=== PATIENT | female | born 1975 | race Caucasian/White ===

== ENCOUNTER 2017-09-17 17:22 | Emergency (ER) | payer MEDICAID ==
[~2017-09-17] VITALS: Ht 172.7 cm; Wt 108.9 kg
[~2017-09-17 17:22] MED LIST: ALLEGRA ALLERG180 MG OR; ASPIRIN 325MG325 MG PO; EFFEXOR XR 75MG75 MG PO; EFFEXOR XR150 MG PO; EFFEXOR100 MG PO; FLEXERIL10 MG PO; IRON65 MG PO; LORTAB 5/500 501 TAB PO; METFORMIN500 MG PO; METOPROLOL25 MG PO; SINGULAIR10 MG PO; TORADOL10 M1 PO; VITAMIN B122500 MC1 PO; VITAMIN D5000 I2 PO; ZANTAC 300300 M1 PO; ZOFRAN ODT4 MG PO
[2017-09-17] MEDS ORDERED: MAG-OX 400MG T400 MG PO (17:30)
--- OUTSIDE RECORDS SUMMARY | 2017-09-17 17:37 | External Medical Summary Rpt ---
Author Author CORRIE Gregory, CORRIE Gregory Organization [employer] Address Unknown Phone Unavailable
--- OUTSIDE RECORDS SUMMARY | 2017-09-17 17:37 | External Medical Summary Rpt | CCD ---
Demographics Preferred Language Mozambican Marital Status Unknown Sabianism Affiliation Unknown Race Unknown Ethnic Group Unknown Author Author , CORRIE DENTON Address Unknown Phone Immunization Unable to retrieve immunization data due to connection failure with Immunization Registry. Please try again later.
--- OUTSIDE RECORDS SUMMARY | 2017-09-17 17:37 | External Medical Summary Rpt | CCD ---
Author Author [employer] Organization [employer] Address Unknown Phone Unavailable Purpose Continuity of Care Document - through 2016
--- OUTSIDE RECORDS SUMMARY | 2017-09-17 17:37 | External Medical Summary Rpt | CCD ---
Author Author , ERNESTO DENTON Address Unknown Phone [email or web address] Purpose Continuity of Care Document - 12-29-2016 through 2016 Problems Code Diagnosis DOS Provider Status M25.551 PAIN IN 06-21-2017 RIGHT HIP M25.511 PAIN IN 06-17-2017 RIGHT SHOULDER M25.559 PAIN IN 05-21-2017 UNSPECIFIED HIP R11.2 NAUSEA WITH 01-15-2017 VOMITING, UNSPECIFIED R11.0 NAUSEA 12-29-2016
--- OUTSIDE RECORDS SUMMARY | 2017-09-17 17:37 | External Medical Summary Rpt | CCD ---
Author Author , ERNESTO DENTON Address Unknown Phone [email or web address] Purpose Continuity of Care Document - 12-29-2016 through 2016 Problems Code Diagnosis DOS Provider Status M25.551 PAIN IN 06-21-2017 RIGHT HIP M25.511 PAIN IN 06-17-2017 RIGHT SHOULDER M25.559 PAIN IN 05-21-2017 UNSPECIFIED HIP R11.2 NAUSEA WITH 01-15-2017 VOMITING, UNSPECIFIED R11.0 NAUSEA 12-29-2016
--- OUTSIDE RECORDS SUMMARY | 2017-09-17 17:37 | External Medical Summary Rpt | CCD ---
Demographics Preferred Language Canadian Marital Status Unknown Holiness Affiliation Unknown Race Unknown Ethnic Group Unknown Author Author , CORRIE DENTON Address Unknown Phone Immunization Unable to retrieve immunization data due to connection failure with Immunization Registry. Please try again later.
--- NOTE | 2017-09-17 18:16 | Emergency Room Report ---
History of Present Illness Time Seen by [id number] Presenting Problem in Triage Pt arrived:Walked Presenting Problem:PT REPORTS PAIN IN COCCYX AREA R/T FALL. Onset of symptoms date/time:09/17/17 or onset unknown for: Treatment Prior to Arrival: [employer] Provided by: Sepsis Risk Assessment: Temp: 98.2 B/P: 156/96 MAP: 116 Pulse: 80 Resp: 18 Recent fever? N Clinical Suspician of Infection? N Mental Status: 1 - Regular (Normal Baseline) Sepsis Risk:Low Sepsis Risk Have you (or family members/close friends) recently traveled outside the [place]? N If Yes, where/when: Have you had exposure to infectious disease within the past month? TB? Other? Specify: Pt fell in bathroom just [employer] while cleaning, landed on L great toe, hyperextending it, now pain with movement and some numbness; worse w WB; also pain in coccyx. Tolerates NSAID's. ALLERGIES Coded Allergies: No Known Allergies (11/20/16) Home Medications Reported Medications VENLAFAXINE HCL (Effexor XR 150MG) 150 MG PO QAM Venlafaxine Hydrochloride (Effexor XR 75MG) 75 MG PO AT 2 P.M. RANITIDINE HCL (Zantac) 300 MG PO BID FEXOFENADINE HCL (Yohana Allergy) 180 MG OR DAILY Montelukast Sodium (Singulair) 10 MG PO DAILY Cyanocobalamin (Vitamin B-12) (Vitamin B12) 2,500 MCG PO DAILY CHOLECALCIFEROL (VITAMIN D3) (Vitamin D3) 5,000 UNIT PO DAILY History Medical History General CAD? No Angina: No [place]: No Hypertension? No Hyperlipidemia? No CHF? No DVT? No PE? No COPD? No Asthma? No Anemia? No GERD? No Gastric ulcers? No GI Bleed? No Hernia? No Thyroid Problems? No Hypothyroidism? No CVA? No Seizures? No Diabetes? No Renal Insuffiency? No End Stage Renal Disease? No UTI? No Stones? No BPH? No GB Disease: No Nephritic Syndrome? No Asplenia? No Hepatitis? No Sickle Cell Disease? No Arthritis? No Migraines? No Cataracts? No Glaucoma? No MRSA? No HIV? No TB? No Anxiety? No Depression? No Cancer? No More? 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 No: respiratory distress, tender on palpation, use of accessory muscles, pain on inspiration, pain on expiration, productive cough, non productive cough. Lung Sounds bilateral: normal breath sounds, lungs clear. Cardiovascular normal exam, regular rate/rhythm, no peripheral edema, no gallop, no JVD, no murmur, no rub, normal peripheral pulses Gastrointestinal normal bowel sounds, normal exam, non tender, soft, no organomegaly, no pulsatile mass, no guarding, no rebound Back normal inspection, no vertebral tenderness, bowel/bladder continent, strt leg raising(L)-NML, strt leg raising(R)-NML, vertebral tenderness (pain over tip of coccyx) Extremities normal range of motion, normal inspection, pain to right great toe proximally and dorsally w/o ecchymosis, deformity, or stepoffs noted. Strength 5 Upper Ext (L), 5 Upper Ext (R), 5 Lower Ext (L), 5 Lower Ext (R) Neurologic alert, normal exam, no motor/sensory deficits, oriented x 3 Glascow Coma Scale Glascow Coma Scale Response Value EYE response: 4 Spontaneously 4 MOTOR response: 6 OBEYS 6 VERBAL response: 5 Oriented & Converses 5 Total 15 Skin intact, normal color, warm/dry Medical Decision Making LABS/Meds/Orders Pt receiving controlled substance in ED? No Dillon was queried for this patient? No Results/Orders Current Medication Orders Sig/Ignacia Start time Last Medication Dose Route Stop Time Status Admin Ketorolac 60 MG ONCE ONE 09/17 1830 AC Tromethamine IM 09/17 1831 Orders Procedure Date/time Status FOOT-LT-3 VIEWS 09/17 173 Active SACRUM AND COCCYX 09/17 1731 Active XRAY/CT/US XRAY/CT/US XRAY toe(s), coccyx XR interpretation by reviewed by me Xray Results abnormal, toe neg acute; small avulsion distal coccyx Departure Departure Time of Disposition 1818 Disposition DC Home or Self Care(routine) Clinical Impression Primary Impression: Fractured coccyx Qualifiers: Encounter type: initial encounter Fracture type: closed Qualified Code: S32.2XXA - Fracture of coccyx, initial encounter for closed fracture Condition STABLE Referrals ALEA HODGE APRN (Family) Patient Instructions DI for Coccyx Fracture Additional Instructions Naproxen every twelve hours with food for 72 hours then every twelve hours as needed; keep stools soft: take Metamucil nightly; see Alea in two to three days for recheck; walk on heel until cleared by Alea Hodge. Discharge Counseling Counseled pt/family regarding diagnosis, test results, medications/RX, home care, follow up needs Prescriptions Current Visit Scripts NAPROXEN (NAPROXEN 500MG TAB) 500 MG PO BIDP PRN pain #20 TAB ED Critical Care Critical Care No at 1820
--- NOTE | 2017-09-17 18:16 | Emergency Room Report ---
History of Present Illness Time Seen by [id number] Presenting Problem in Triage Pt arrived:Walked Presenting Problem:PT REPORTS PAIN IN COCCYX AREA R/T FALL. 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 N Clinical Suspician of Infection? N Mental Status: 1 - Regular (Normal Baseline) Sepsis Risk:Low Sepsis Risk Have you (or family members/close friends) recently traveled outside the [place]? N If Yes, where/when: Have you had exposure to infectious disease within the past month? TB? Other? 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 Tolerates NSAID's. ALLERGIES Coded Allergies: No Known Allergies (11/20/16) Home Medications Reported Medications VENLAFAXINE HCL (Effexor XR 150MG) 150 MG PO QAM Venlafaxine Hydrochloride (Effexor XR 75MG) 75 MG PO AT 2 P.M. RANITIDINE HCL (Zantac) 300 MG PO BID FEXOFENADINE HCL (Yohana Allergy) 180 MG OR DAILY Montelukast Sodium (Singulair) 10 MG PO DAILY Cyanocobalamin (Vitamin B-12) (Vitamin B12) 2,500 MCG PO DAILY CHOLECALCIFEROL (VITAMIN D3) (Vitamin D3) 5,000 UNIT PO DAILY History Medical History General CAD? No Angina: No [place]: No Hypertension? No Hyperlipidemia? No CHF? No DVT? No PE? No COPD? No Asthma? No Anemia? No GERD? No Gastric ulcers? No GI Bleed? No Hernia? No Thyroid Problems? No Hypothyroidism? No CVA? No Seizures? No Diabetes? No Renal Insuffiency? No End Stage Renal Disease? No UTI? No Stones? No BPH? No GB Disease: No Nephritic Syndrome? No Asplenia? No Hepatitis? No Sickle Cell Disease? No Arthritis? No Migraines? No Cataracts? No Glaucoma? No MRSA? No HIV? No TB? No Anxiety? No Depression? No Cancer? No More? 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 No: respiratory distress, tender on palpation, use of accessory muscles, pain on inspiration, pain on expiration, productive cough, non productive cough. Lung Sounds bilateral: normal breath sounds, lungs clear. Cardiovascular normal exam, regular rate/rhythm, no peripheral edema, no gallop, no JVD, no murmur, no rub, normal peripheral pulses Gastrointestinal normal bowel sounds, normal exam, non tender, soft, no organomegaly, no pulsatile mass, no guarding, no rebound Back normal inspection, no vertebral tenderness, bowel/bladder continent, strt leg raising(L)-NML, strt leg raising(R)-NML, vertebral tenderness (pain over tip of coccyx) Extremities normal range of motion, normal inspection, pain to right great toe proximally and dorsally w/o ecchymosis, deformity, or stepoffs noted. Strength 5 Upper Ext (L), 5 Upper Ext (R), 5 Lower Ext (L), 5 Lower Ext (R) Neurologic alert, normal exam, no motor/sensory deficits, oriented x 3 Glascow Coma Scale Glascow Coma Scale Response Value EYE response: 4 Spontaneously 4 MOTOR response: 6 OBEYS 6 VERBAL response: 5 Oriented & Converses 5 Total 15 Skin intact, normal color, warm/dry Medical Decision Making LABS/Meds/Orders Pt receiving controlled substance in ED? No Dillon was queried for this patient? No Results/Orders Current Medication Orders Sig/Ignacia Start time Last Medication Dose Route Stop Time Status Admin Ketorolac 60 MG ONCE ONE 09/17 1830 AC Tromethamine IM 09/17 1831 Orders Procedure Date/time Status FOOT-LT-3 VIEWS 09/17 173 Active SACRUM AND COCCYX 09/17 1731 Active XRAY/CT/US XRAY/CT/US XRAY toe(s), coccyx XR interpretation by reviewed by me Xray Results abnormal, toe neg acute; small avulsion distal coccyx Departure Departure Time of Disposition 1818 Disposition DC Home or Self Care(routine) Clinical Impression Primary Impression: Fractured coccyx Qualifiers: Encounter type: initial encounter Fracture type: closed Qualified Code: S32.2XXA - Fracture of coccyx, initial encounter for closed fracture Condition STABLE Referrals ALEA HDOGE APRN (Family) Patient Instructions DI for Coccyx Fracture Additional Instructions Naproxen every twelve hours with food for 72 hours then every twelve hours as needed; keep stools soft: take Metamucil nightly; see Alea in two to three days for recheck; walk on heel until cleared by Alea Hodge. Discharge Counseling Counseled pt/family regarding diagnosis, test results, medications/RX, home care, follow up needs Prescriptions Current Visit Scripts NAPROXEN (NAPROXEN 500MG TAB) 500 MG PO BIDP PRN pain #20 TAB ED Critical Care Critical Care No at 1822
[2017-09-17] MEDS ORDERED: NAPROXEN SODIU500 MG PO (18:23)
[2017-09-17 18:42] VITALS: BP 135/83
--- NOTE | 2017-09-18 11:23 | RADIOLOGY REPORT PS360 ---
FOOT-LT-3 VIEWS HISTORY: HIT FOOT ON TOILET, 1ST DIGIT PAIN trauma Patient Age: 42 years: Female Ordering Physician: Karin Riley MD TECHNIQUE: 3 views left foot COMPARISON :Right foot from 2014. FINDINGS Left foot appears intact with no fracture nor dislocation. The bones are well mineralized and the joint spaces are well-maintained. No erosions. Minimal spurring at insertion of Achilles tendon along with moderate plantar calcaneal spur incidentally noted. Attention is directed to the great toe. No fracture nor dislocation here. IMPRESSION: . No fracture or acute findings at left foot Left great toe appears intact. Unremarkable.
--- NOTE | 2017-09-18 11:37 | RADIOLOGY REPORT PS360 ---
SACRUM AND COCCYX HISTORY: FALLfall with coccyx pain fall on buttock Patient Age: 42 years: Female Ordering Physician: Karin Riley MD TECHNIQUE: AP lateral view sacrum and coccyx COMPARISON :CT abdomen pelvis November 2016 Also lumbar spine series from November 2012 FINDINGS . The sacrum appears stable and intact with no definitive fracture.. It appears similar to the lumbar spine series AP views of the sacrum from November 2012, as does the coccyx. On the lateral image on this a question some slight irregularity at the mid sacrum but with no corresponding findings on AP view I doubt this is of significance. . The coccyx is directed anteriorly on with similar to position as seen on November 2016. Question, suggestion perhaps additional separation at the at the base of the tip of coccyx. Could reflect minor fibrosis disruption of tip of the coccyx.. Subtle, unimpressive radiographically and requires clinical correlation. If patient focally tender here then it may indeed reflect acute injury. Radiographically, would tend expect to see a more evident anterior hematoma ( .I would note the coccyx is one of the most variable bones in the human body, and with this clinical correlation is particularly important here) If the patient should have persistent severe pain in this region a follow-up CT may might be considered Otherwise incidental note pre-existing sclerotic changes at the iliac margin of SI joints bilaterally most pronounced on left.. Which dates back to the previous 2012 lumbar spine series study. A may reflect underlying element of sacroiliitis. SI joint remains patent bilaterally however. IMPRESSION Anterior tilt & orientation of activity coccyx similar to CT November 2016. No displacement However there could be very subtle fibrous separation of tip the coccyx but this equivocal-. Requires Clinical correlation. If discrete point point tenderness at this site, then suspicion of minor fibrous disruption at tip of coccyx would suspect . If there Should be persistent pain in this region may warrant further studies. Sacrum with no discrete acute fracture Added note: Patient does have sclerotic changes along iliac margin of the SI joint bilaterally- most evident on left. This is similar plain films lumbar spine dating back to 2012. Requires correlation
== END 2017-09-17 18:42 | disposition home or self-care (01) ==
LOC: ER 17:22
DX: S32.2XXA Fracture of coccyx, initial encounter for closed fracture (principal); S90.112A Contusion of left great toe without damage to nail, initial encounter; W01.0XXA Fall on same level from slipping, tripping and stumbling without subsequent striking against object, initial encounter; Y92.009 Unspecified place in unspecified non-institutional (private) residence as the place of occurrence of the external cause